=== PATIENT | female | born 1960 | race Caucasian/White ===

== ENCOUNTER 2020-06-02 14:53 | Outpatient (REF) | payer BC, SELFPAY ==
[2020-06-02 15:31] LABS: MANUAL DIFF FLAG NO
[2020-06-02 15:36] LABS: Basophils Percent Auto 0.6 % (0-2); Eosinophils Absolute Auto 0.4 X10*3/uL (0.0-0.4); Eosinophils Percent Auto 5.5 % (0-4); Hematocrit 44.4 % (37-47); Hemoglobin 14.9 g/dl (12.0-16.0); Imm Gran Abs Auto 0.01 X10*3/uL (0.00-0.03); Imm Gran Pct Auto 0.1 % (0.0-0.4); Lymphocytes Absolute Auto 2.3 X10*3/uL (1.2-4.9); Lymphocytes Percent Auto 33.1 % (20-40); Mean Corpuscular HGB Conc 33.6 g/dl (31.0-35.0); Mean Corpuscular Hemoglobin 30.5 pg (27.0-33.0); Mean Corpuscular Volume 90.8 fL (80-98); Mean Platelet Volume 10.9 fL (9.4-12.3); Monocytes Absolute Auto 0.6 X10*3/uL (0.1-1.2); Monocytes Percent Auto 8.6 % (2-11); Neutrophils Absolute Auto 3.6 X10*3/uL (2.0-8.3); Neutrophils Percent Auto 52.1 % (45-73); Platelet Count 271 X10*3/uL (160-400); Red Blood Count 4.89 X10*6/uL (4.20-5.50); Red Cell Distribution Width 13.1 % (11.0-16.0); White Blood Count 6.9 X10*3/uL (4.8-10.8)
[2020-06-02 16:07] LABS: Alanine Aminotransferase 21 U/L (0-31); Albumin Level 4.8 g/dL (3.5-5.0); Alkaline Phosphatase 88 U/L (39-117); Anion Gap 13 (12-20); Aspartate Amino Transferase 25 U/L (5-31); Bilirubin Total 0.5 mg/dL (0.0-1.0); Blood Urea Nitrogen 22 mg/dL (9-16); Calcium 9.6 mg/dL (8.4-10.2); Carbon Dioxide 31 mmol/L (22-29); Chloride 99 mmol/L (96-108); Cholesterol 206 mg/dL; Estimated Glomerular Filt Rate 58; Glucose Random 83 mg/dL (60-115); HDL Cholesterol 67 mg/dL; LDL Cholesterol Calculated 111 mg/dl; Potassium 4.6 mmol/l (3.3-5.1); Sodium 138 mmol/L (135-145); Total Protein 7.3 g/dL (6.5-8.0); Triglycerides 140 mg/dL
[2020-06-02 16:28] LABS: Free T4 (Free Thyroxine) 1.01 ng/dL (0.71-1.85); Thyroid Stimulating Hormone 1.46 uIU/mL (0.32-4.0)
== END 2020-06-02 14:54 | disposition home or self-care (01) ==
LOC: HO.LAB 14:53
PROVIDERS: PCP Internal Medicine; Visit Provider Internal Medicine
DX: E03.9 Hypothyroidism, unspecified (principal); Z00.00 Encounter for general adult medical examination without abnormal findings
CPT/HCPCS: 36415; 80053; 80061; 84439; 84443; 85025

== ENCOUNTER 2020-12-21 14:56 | Outpatient (REF) | payer OTHER, SELFPAY ==
[2020-12-21 15:38] LABS: MANUAL DIFF FLAG NO
[2020-12-21 15:42] LABS: Basophils Percent Auto 0.4 % (0-2); Eosinophils Absolute Auto 0.4 X10*3/uL (0.0-0.4); Eosinophils Percent Auto 5.5 % (0-4); Hematocrit 40.2 % (37-47); Hemoglobin 13.1 g/dl (12.0-16.0); Imm Gran Abs Auto 0.01 X10*3/uL (0.00-0.03); Imm Gran Pct Auto 0.1 % (0.0-0.4); Lymphocytes Percent Auto 28.9 % (20-40); Mean Corpuscular HGB Conc 32.6 g/dl (31.0-35.0); Mean Corpuscular Hemoglobin 29.6 pg (27.0-33.0); Mean Corpuscular Volume 90.7 fL (80-98); Mean Platelet Volume 10.9 fL (9.4-12.3); Monocytes Absolute Auto 0.6 X10*3/uL (0.1-1.2); Monocytes Percent Auto 8.9 % (2-11); Neutrophils Absolute Auto 3.9 X10*3/uL (2.0-8.3); Neutrophils Percent Auto 56.2 % (45-73); Platelet Count 238 X10*3/uL (160-400); Red Blood Count 4.43 X10*6/uL (4.20-5.50); Red Cell Distribution Width 12.2 % (11.0-16.0); White Blood Count 6.9 X10*3/uL (4.8-10.8)
[2020-12-21 16:02] LABS: Alanine Aminotransferase 21 U/L (0-31); Albumin Level 4.4 g/dL (3.5-5.0); Alkaline Phosphatase 76 U/L (39-117); Anion Gap 13 (12-20); Aspartate Amino Transferase 23 U/L (5-31); Bilirubin Total 0.2 mg/dL (0.0-1.0); Blood Urea Nitrogen 18 mg/dL (9-16); C Reactive Protein 0.27 mg/dL (< or = 0.50); Calcium 10.2 mg/dL (8.4-10.2); Carbon Dioxide 29 mmol/L (22-29); Chloride 104 mmol/L (96-108); Estimated Glomerular Filt Rate > 60; Glucose Random 87 mg/dL (60-115); Lipase 36 U/L (8-78); Sodium 142 mmol/L (135-145); Total Protein 6.8 g/dL (6.5-8.0)
[2020-12-21 16:24] LABS: Free T4 (Free Thyroxine) 1.29 ng/dL (0.71-1.85); Thyroid Stimulating Hormone < 0.01 uIU/mL (0.32-4.0); Vitamin D 25-OH Total 58.5 ng/mL (>30)
[2020-12-22 16:06] LABS: Transglutaminase Ab IgG 1 U/mL
[2020-12-23 00:11] LABS: Gliadin Deamidated IgA Ab 4 Units; Gliadin Deamidated IgG Ab 1 Units
== END 2020-12-21 14:57 | disposition home or self-care (01) ==
LOC: HO.LAB 14:56
PROVIDERS: PCP Internal Medicine; Visit Provider Internal Medicine
DX: R19.7 Diarrhea, unspecified (principal); R21 Rash and other nonspecific skin eruption; I10 Essential (primary) hypertension; E55.9 Vitamin D deficiency, unspecified; E05.00 Thyrotoxicosis with diffuse goiter without thyrotoxic crisis or storm
CPT/HCPCS: 36415; 80053; 82306; 83516; 83690; 84439; 84443; 85025; 86140

== ENCOUNTER 2020-12-22 13:27 | Outpatient (REF) | payer OTHER, SELFPAY ==
[2020-12-23 06:17] LABS: Triiodothyronine T3 Free 5.3 pg/mL (2.3-4.2)
[2020-12-23 09:32] LABS: Thyroid Peroxidase Antibodies 305 IU/mL (<9)
== END 2020-12-22 13:28 | disposition home or self-care (01) ==
LOC: HO.LAB 13:27
PROVIDERS: PCP Internal Medicine; Visit Provider Internal Medicine
DX: E03.9 Hypothyroidism, unspecified (principal); E05.00 Thyrotoxicosis with diffuse goiter without thyrotoxic crisis or storm
CPT/HCPCS: 36415; 84481; 86376

== ENCOUNTER 2021-01-10 10:13 | Outpatient (REF) | payer OTHER, SELFPAY ==
--- NOTE | ~2021-01-10 | MM_ITS ---
EXAMINATION: MM SCREENING DIGITAL BREAST TOMOSYNTHESIS, BILATERAL CLINICAL INFORMATION: Screening. Asymptomatic. The lifetime risk of breast cancer based on the Tyrer-Cuzick Model is 19%. COMPARISON: Mammography: 12/10/2019, 08/21/2018, 08/14/2017 TECHNIQUE: Digital breast tomosynthesis is performed in both the craniocaudal and mediolateral oblique views along with computer-aided detection (CAD). Synthesized 2D images are generated from the tomosynthesis. FINDINGS: There are scattered areas of fibroglandular density (ACR BI-RADS breast composition Category b). There are no significant masses, abnormal calcifications, or other abnormalities. The axilla and skin contours are unremarkable. No significant changes. MM/MM tomosynthesis screening BI IMPRESSION: No mammographic evidence of malignancy. ASSESSMENT: BI-RADS 1: Negative RECOMMENDATION: Routine annual mammography screening. This patient's information was entered into a reminder system with a target due date for their next mammogram.
== END 2021-01-10 10:14 | disposition home or self-care (01) ==
LOC: HO.MAMMO 10:13
PROVIDERS: Visit Provider Internal Medicine
DX: Z12.31 Encounter for screening mammogram for malignant neoplasm of breast (principal)
CPT/HCPCS: 77063; 77067

== ENCOUNTER 2022-01-11 10:21 | Outpatient (REF) | payer OTHER, SELFPAY ==
--- NOTE | ~2022-01-11 | MM_ITS ---
EXAMINATION: MM SCREENING DIGITAL BREAST TOMOSYNTHESIS, BILATERAL CLINICAL INFORMATION: Screening. Asymptomatic. The lifetime risk of breast cancer based on the Tyrer-Cuzick Model is 19.4%. COMPARISON: Mammography: January 10, 2021 and studies dating back to June 15, 2014 TECHNIQUE: Digital breast tomosynthesis is performed in both the craniocaudal and mediolateral oblique views along with computer-aided detection (CAD). Synthesized 2D images are generated from the tomosynthesis. FINDINGS: The breasts are heterogeneously dense, which may obscure small masses (ACR BI-RADS breast composition Category c). There are no significant masses, abnormal calcifications, or other abnormalities. MM/MM tomosynthesis screening BI IMPRESSION: There are no significant changes from prior study. ASSESSMENT: BI-RADS 1: Negative RECOMMENDATION: Routine annual mammography screening. This patient's information was entered into a reminder system with a target due date for their next mammogram.
== END 2022-01-11 10:22 | disposition home or self-care (01) ==
LOC: HO.MAMMO 10:21
PROVIDERS: PCP Internal Medicine; Visit Provider Internal Medicine
DX: Z12.31 Encounter for screening mammogram for malignant neoplasm of breast (principal)
CPT/HCPCS: 77063; 77067

== ENCOUNTER 2022-02-28 11:07 | Outpatient (REF) | payer OTHER, SELFPAY ==
[2022-02-28 13:37] LABS: MANUAL DIFF FLAG NO
[2022-02-28 13:39] LABS: Basophils Absolute Auto 0.1 X10*3/uL (0.0-0.2); Basophils Percent Auto 1.2 % (0-2); Eosinophils Absolute Auto 0.3 X10*3/uL (0.0-0.4); Eosinophils Percent Auto 4.2 % (0-4); Hematocrit 41.4 % (37.0-47.0); Hemoglobin 13.5 g/dl (12.0-16.0); Imm Gran Abs Auto 0.02 X10*3/uL (0.00-0.03); Imm Gran Pct Auto 0.3 % (0.0-0.4); Lymphocytes Percent Auto 29.5 % (20-40); Mean Corpuscular HGB Conc 32.6 g/dl (31.0-35.0); Mean Corpuscular Hemoglobin 31.1 pg (27.0-33.0); Mean Corpuscular Volume 95.4 fL (80.0-98.0); Mean Platelet Volume 11.1 fL (9.4-12.3); Monocytes Absolute Auto 0.5 X10*3/uL (0.1-1.2); Monocytes Percent Auto 6.6 % (2-11); Neutrophils Percent Auto 58.2 % (45-73); Platelet Count 236 X10*3/uL (160-400); Red Blood Count 4.34 X10*6/uL (4.20-5.50); White Blood Count 6.9 X10*3/uL (4.8-10.8)
[2022-02-28 13:50] LABS: Alanine Aminotransferase 17 U/L (0-31); Albumin Level 4.2 g/dL (3.5-5.0); Alkaline Phosphatase 96 U/L (39-117); Anion Gap 15 (12-20); Aspartate Amino Transferase 19 U/L (5-31); Bilirubin Total 0.6 mg/dL (0.0-1.0); Blood Urea Nitrogen 18 mg/dL (9-16); Calcium 9.3 mg/dL (8.4-10.2); Carbon Dioxide 28 mmol/L (22-29); Chloride 103 mmol/L (96-108); Estimated Glomerular Filt Rate > 60; Glucose Fasting 72 mg/dL (60-99); Sodium 142 mmol/L (135-145); Total Protein 6.7 g/dL (6.5-8.0)
[2022-02-28 14:14] LABS: Free T4 (Free Thyroxine) 0.87 ng/dL (0.71-1.85); Thyroid Stimulating Hormone 1.73 uIU/mL (0.32-4.0); Vitamin D 25-OH Total 68.1 ng/mL (>30)
[2022-03-01 21:25] LABS: Thyroid Peroxidase Antibodies 106 IU/mL (<9)
== END 2022-02-28 11:08 | disposition home or self-care (01) ==
LOC: HO.10HDL 11:07
PROVIDERS: Visit Provider Internal Medicine
DX: I10 Essential (primary) hypertension (principal); E55.9 Vitamin D deficiency, unspecified; E03.9 Hypothyroidism, unspecified
CPT/HCPCS: 36415; 80053; 82306; 84439; 84443; 85025; 86376

== ENCOUNTER 2022-04-25 10:34 | Outpatient (REF) | payer OTHER, SELFPAY ==
--- NOTE | ~2022-04-25 | US_ITS ---
EXAMINATION: US THYROID CLINICAL INFORMATION: Enlarged thyroid. COMPARISON: Nuclear medicine thyroid scans most recent January 2017 TECHNIQUE: Linear transducer grayscale and color Doppler examination with attention to the region of the thyroid. FINDINGS: SIZE: Measurements of the thyroid lobes and nodules are given in sagittal, anteroposterior and transverse dimensions respectively. Right Thyroid Lobe: 4.4 x 1.1 x 1.5 cm, volume 3.9 mL. Parenchyma: The gland echotexture is slightly heterogeneous. Thyroid vascularity is slightly increased. Left Thyroid Lobe: 4.1 x 1.1 x 1.3 cm, volume 3.0 mL. Parenchyma: The gland echotexture is slightly heterogeneous. Thyroid vascularity is slightly increased. Isthmus: 0.4 cm in maximum AP dimension. No focal thyroid nodule is seen. NODES: No lymphadenopathy is seen in the tissue surrounding the thyroid gland. US/US thyroid IMPRESSION: Normal size slightly heterogeneous hypervascular thyroid gland. No focal nodule.
== END 2022-04-25 10:35 | disposition home or self-care (01) ==
LOC: HO.US 10:34
PROVIDERS: PCP Internal Medicine; Visit Provider Internal Medicine
DX: E04.9 Nontoxic goiter, unspecified (principal)
CPT/HCPCS: 76536

== ENCOUNTER 2022-11-30 10:33 | Outpatient (REF) | payer OTHER, SELFPAY ==
[2022-11-30 11:26] LABS: Anion Gap 12 (12-20); Blood Urea Nitrogen 21 mg/dL (9-16); Calcium 10.3 mg/dL (8.4-10.2); Carbon Dioxide 30 mmol/L (22-29); Chloride 104 mmol/L (96-108); Estimated Glomerular Filt Rate 57; Glucose Random 95 mg/dL (60-115); Potassium 3.9 mmol/L (3.3-5.1); Sodium 142 mmol/L (135-145)
[2022-11-30 11:45] LABS: Free T4 (Free Thyroxine) 0.82 ng/dL (0.71-1.85); Thyroid Stimulating Hormone 7.21 uIU/mL (0.32-4.0)
[2022-12-02 12:29] LABS: Thyroid Peroxidase Antibodies 236 IU/mL (<9)
== END 2022-11-30 10:34 | disposition home or self-care (01) ==
LOC: HO.LAB 10:33
PROVIDERS: PCP Internal Medicine; Visit Provider Internal Medicine
DX: I10 Essential (primary) hypertension (principal); E03.9 Hypothyroidism, unspecified; E05.00 Thyrotoxicosis with diffuse goiter without thyrotoxic crisis or storm
CPT/HCPCS: 36415; 80048; 84439; 84443; 86376

== ENCOUNTER 2023-01-22 12:06 | Outpatient (REF) | payer OTHER, SELFPAY ==
--- NOTE | ~2023-01-22 | MM_ITS ---
EXAMINATION: MM SCREENING DIGITAL BREAST TOMOSYNTHESIS, BILATERAL CLINICAL INFORMATION: Screening. Asymptomatic. The lifetime risk of breast cancer based on the Tyrer-Cuzick Model is 19%. COMPARISON: Mammography: This study is compared with prior exams dating back to 2018. TECHNIQUE: Digital breast tomosynthesis is performed in both the craniocaudal and mediolateral oblique views along with computer-aided detection (CAD). Synthesized 2D images are generated from the tomosynthesis. FINDINGS: There are scattered areas of fibroglandular density (ACR BI-RADS breast composition Category b). There are no significant masses, abnormal calcifications, or other abnormalities. MM/MM tomosynthesis screening BI IMPRESSION: No mammographic evidence of malignancy. ASSESSMENT: BI-RADS BI-RADS 1 - Negative RECOMMENDATION: Routine annual mammography screening. 1 year F/U This examination should not preclude the clinical evaluation of a suspicious palpable abnormality. This patient's information was entered into a reminder system with a target due date for their next mammogram.
[2023-01-22 15:20] LABS: Free T4 (Free Thyroxine) 0.77 ng/dL (0.71-1.85); Thyroid Stimulating Hormone 1.77 uIU/mL (0.32-4.0)
== END 2023-01-22 12:07 | disposition home or self-care (01) ==
LOC: HO.MAMMO 12:06
PROVIDERS: PCP Internal Medicine; Visit Provider Internal Medicine
DX: Z12.31 Encounter for screening mammogram for malignant neoplasm of breast (principal); E03.9 Hypothyroidism, unspecified; E06.9 Thyroiditis, unspecified
CPT/HCPCS: 36415; 77063; 77067; 84439; 84443

== ENCOUNTER → 2023-01-22 12:30 | Outpatient (BNV) | payer OTHER, SELFPAY | PROVIDERS: PCP Internal Medicine; Visit Provider Radiology Diagnostic Radiology | DX: Z12.31 Encounter for screening mammogram for malignant neoplasm of breast (principal) | CPT/HCPCS: 77063; 77067 ==

== ENCOUNTER 2023-06-15 07:27 | Day surgery (SDC) | payer OTHER, SELFPAY ==
[2023-06-13 15:13] VITALS: BMI 21.1
[2023-06-13 15:26] VITALS: BMI 21.1
--- NOTE | 2023-06-14 09:47 | HO.ANESPROP2 ---
Documented by User: Madeline Cheng NP 06/14/23 09:48 HPI - Anesthesia Eval Consult details Narrative: 62yo F for Colonoscopy PMFSH Past Medical History Medical History Thyroid disease Elevated cholesterol HTN (hypertension) Surgical History Surgical History Hx of dilation and curettage Hx of hysterectomy Hx of tonsillectomy H/O colonoscopy Social History Social History Household Members: Spouse Are you a primary certified social workers in health care to a significant other at home: No Patient Tobacco Use Status: Former Tobacco user Quit Date: >10years ago Tobacco use type: Cigarette Use of substances other than those prescribed or required for medical reasons: No Have you been hit, kicked, punched, or otherwise hurt by someone within the past year? If so, by whom?: No Are you DNR?: No Advance Directives: No Advance Directives Information Provided: Yes Advance Directives on File: No Recently lost weight without trying: No Eating poorly because of decreased appetite: No Nutrition Risks: No Nutritional Risk Poor oral hygiene: No Meds Allergies Allergy/AdvReac Type Severity Reaction Status Date / Time penicillin G [Penicillin G] Allergy Intermediate Unknown-childhood Verified 06/15/23 07:48 allergy erythromycin base Allergy Mild HIVES Verified 06/15/23 07:48 [Erythromycin Base] Sulfa (Sulfonamide Allergy Mild HIVES Verified 06/15/23 07:48 Antibiotics) [Sulfa (Sulfonamides)] Home Medications Medication Instructions Recorded Confirmed Last Taken Type atenolol 50 mg tablet 50 mg PO DAILY 06/13/23 06/15/23 06/14/23 History atorvastatin 10 mg tablet 10 mg PO DAILY 06/13/23 06/15/23 06/14/23 History hydrochlorothiazide 12.5 mg tablet 12.5 mg PO DAILY 06/13/23 06/13/23 Unknown History lisinopril 5 mg tablet 5 mg PO DAILY 06/13/23 06/15/23 06/14/23 History methimazole 5 mg tablet 5 mg PO DAILY 06/13/23 06/15/23 06/14/23 History Exam Height,Weight and Vital Signs: Height 5 ft 5.25 in Weight 58.06 kg Pertinent Lab Results Pertinent Lab Results: Laboratory Tests 02/28/22 02/28/22 11/30/22 11:11 11:11 10:40 WBC 6.9 Hgb 13.5 Hct 41.4 Plt Count 236 Sodium Potassium 3.9 Chloride Carbon Dioxide BUN Creatinine 11/30/22 10:40 WBC Hgb Hct Plt Count Sodium 142 Potassium Chloride 104 Carbon Dioxide 30 H BUN 21 H Creatinine 0.99 Assessment and Plan Assessment Anesthesia Assessment: Chart Reviewed Documented by User: Angely Triplett MD 06/15/23 08:34 PMFSH Past Medical History Medical History Thyroid disease Elevated cholesterol HTN (hypertension) Family History Family history of problems with anesthesia: No Surgical History Surgical History Hx of dilation and curettage Hx of hysterectomy Hx of tonsillectomy H/O colonoscopy History of Problems with Anesthesia: No Social History Social History Household Members: Spouse Are you a primary certified social workers in health care to a significant other at home: No Patient Tobacco Use Status: Former Tobacco user Quit Date: >10years ago Tobacco use type: Cigarette Use of substances other than those prescribed or required for medical reasons: No Have you been hit, kicked, punched, or otherwise hurt by someone within the past year? If so, by whom?: No Are you DNR?: No Advance Directives: No Advance Directives Information Provided: Yes Advance Directives on File: No Recently lost weight without trying: No Eating poorly because of decreased appetite: No Nutrition Risks: No Nutritional Risk Poor oral hygiene: No Meds Allergies Allergy/AdvReac Type Severity Reaction Status Date / Time penicillin G [Penicillin G] Allergy Intermediate Unknown-childhood Verified 06/15/23 07:48 allergy erythromycin base Allergy Mild HIVES Verified 06/15/23 07:48 [Erythromycin Base] Sulfa (Sulfonamide Allergy Mild HIVES Verified 06/15/23 07:48 Antibiotics) [Sulfa (Sulfonamides)] Home Medications Medication Instructions Recorded Confirmed Last Taken Type atenolol 50 mg tablet 50 mg PO DAILY 06/13/23 06/15/23 06/14/23 History atorvastatin 10 mg tablet 10 mg PO DAILY 06/13/23 06/15/23 06/14/23 History hydrochlorothiazide 12.5 mg tablet 12.5 mg PO DAILY 06/13/23 06/13/23 Unknown History lisinopril 5 mg tablet 5 mg PO DAILY 06/13/23 06/15/23 06/14/23 History methimazole 5 mg tablet 5 mg PO DAILY 06/13/23 06/15/23 06/14/23 History Exam Height,Weight and Vital Signs: Height 5 ft 5.25 in Weight 58.06 kg Vital Signs Temp Pulse Resp BP Pulse Ox O2 Del Method 06/15/23 07:59 97.0 F 58 16 130/67 100 Room Air Airway Mallampati Class: II TM Dist: >3cm Neck ROM: Full Loose/Missing/Broken Teeth: No (Denies broken, loose, missing teeth) Heart: RRR Lungs: CTAB Assessment and Plan Assessment Anesthesia Assessment: Anesthesia Plan Discussed Final Anesthetic Review Family History of Problems with Anesthesia: No History of Problems with Anesthesia: No NPO: Yes ASA Class: II Final Preanesthetic Review: No Changes in Pt Med Stat, Meds/Allgs Chart Reviewed, Consent Obtained/Reviewed and Anes Risks/Benef Reviewed Patient Risk: Low Procedure Risk: Low Assessment/Block/Sedation in SS: Assess/Block/Sedation-SS Anesthetic Plan Anesthetic Plan: MAC: Disposition: Standard PACU
[2023-06-15 07:59] VITALS: BP 130/67; PULSE 58; RESP 16; TEMP 36.1; O2SAT 100
[2023-06-15] MEDS: Lactated Ringers 1,000 ML 100 ML IVCONT (08:01)
--- NOTE | 2023-06-15 09:07 | P.BOP_ITS ---
Brief Operative Note Date of Service: 06/15/23 Pre-op diagnosis: Screening Post-op diagnosis: other (Rectal polyps) Procedure: Colonoscopy to the cecum with bx/removal of polyps Surgeon: Corey Pastrana MD Anesthesia: MAC Was an Supervisor [employer] used for this Procedure?: No Estimated blood loss (mL): 2.0 Pathology: other (A. Rectal polyps) Condition: stable Disposition: PACU
[2023-06-15 09:15] VITALS: BP 114/60; PULSE 64; RESP 16; TEMP 36.3; O2SAT 100
[2023-06-15 09:31] VITALS: BP 118/64; PULSE 52; RESP 18; TEMP 36.2; O2SAT 99
--- NOTE | 2023-06-15 09:42 | OP_ITS ---
DATE OF SERVICE: 06/15/2023 SURGEON: Corey Pastrana MD INDICATIONS: The patient presents for evaluation of colorectal cancer screening. Full consent was obtained from her for this, including risks of bleeding and perforation. PREOPERATIVE DIAGNOSIS: Colorectal cancer screening. POSTOPERATIVE DIAGNOSIS: PROCEDURE PERFORMED: Colonoscopy to the cecum with biopsy and removal of polyps. ESTIMATED BLOOD LOSS: COMPLICATIONS: ANESTHESIA: Monitored anesthesia care. ASSISTANTS: SPECIMENS: POSTOPERATIVE DIAGNOSES: Colorectal cancer screening, small rectal polyps, diverticulosis, and internal hemorrhoids. DESCRIPTION OF PROCEDURE: The patient was placed in the left lateral decubitus position. The digital rectal exam revealed no abnormalities. The Olympus video pediatric colonoscope was entered into the rectum and advanced easily to the cecum. Once in the cecum I did identify a normal-appearing cecal pouch with appendiceal orifice and a normal-appearing ileocecal valve. There was transillumination of light deep in the right lower quadrant. The entire cecum and ileocecal valve appeared normal. The scope was slowly withdrawn assessing all mucosal surfaces carefully. Preparation was excellent. There was a mild amount of sigmoid diverticulosis. There was no sign of any colitis nor angiodysplasia. In the rectum there were 2 flat less than 5 mm polyps which were each biopsied and completely removed with the cold biopsy forceps. The scope was retroflexed visualizing internal hemorrhoids, but no other pathology. The scope was straightened and withdrawn from the patient. She tolerated the procedure well and was returned to recovery area in stable condition. IMPRESSION: 1. Small rectal polyps. 2. Diverticulosis. 3. Internal hemorrhoids. PLAN: The results of biopsy will be checked. If these are tubular adenoma, I would recommend a followup coloscopy in 5 years. If they are both hyperplastic, I would recommend a followup coloscopy in 10 years. She will otherwise see me on a p.r.n. basis. This has been discussed with her . MD FRANCES Zazueta/MARGARET / [id number] [id number]
== END 2023-06-15 09:40 | disposition home or self-care (01) ==
PROVIDERS: PCP Internal Medicine; Visit Provider Internal Medicine
PROC: 0DJD8ZZ Inspection of Lower Intestinal Tract, Via Natural or Artificial Opening Endoscopic (ICD-10-PCS; CPT 45378; principal; 2023-06-15 08:30)
DX: Z12.11 Encounter for screening for malignant neoplasm of colon (principal); K62.1 Rectal polyp; K57.30 Diverticulosis of large intestine without perforation or abscess without bleeding; K64.8 Other hemorrhoids; I10 Essential (primary) hypertension; E78.5 Hyperlipidemia, unspecified; E05.00 Thyrotoxicosis with diffuse goiter without thyrotoxic crisis or storm; Z79.899 Other long term (current) drug therapy; Z88.0 Allergy status to penicillin; Z88.1 Allergy status to other antibiotic agents; Z88.2 Allergy status to sulfonamides; Z87.891 Personal history of nicotine dependence
CPT/HCPCS: 45380; 88305; J2704

== ENCOUNTER 2023-12-21 10:36 | Outpatient (REF) | payer OTHER, SELFPAY ==
[2023-12-21 14:16] LABS: MANUAL DIFF FLAG NO
[2023-12-21 14:24] LABS: Basophils Percent Auto 0.6 % (0-2); Eosinophils Absolute Auto 0.2 X10*3/uL (0.0-0.4); Eosinophils Percent Auto 3.8 % (0-4); Hematocrit 42.2 % (37.0-47.0); Imm Gran Abs Auto 0.02 X10*3/uL (0.00-0.03); Imm Gran Pct Auto 0.3 % (0.0-0.4); Lymphocytes Percent Auto 31.4 % (20-40); Mean Corpuscular HGB Conc 33.2 g/dl (31.0-35.0); Mean Corpuscular Volume 93.6 fL (80.0-98.0); Mean Platelet Volume 10.9 fL (9.4-12.3); Monocytes Absolute Auto 0.5 X10*3/uL (0.1-1.2); Monocytes Percent Auto 7.2 % (2-11); Neutrophils Absolute Auto 3.5 x10*3/uL (2.0-8.3); Neutrophils Percent Auto 56.7 % (45-73); Platelet Count 254 X10*3/uL (160-400); Red Blood Count 4.51 X10*6/uL (4.20-5.50); Red Cell Distribution Width 12.8 % (11.0-16.0); White Blood Count 6.3 X10*3/uL (4.8-10.8)
[2023-12-21 15:15] LABS: Alanine Aminotransferase 17 U/L (0-31); Albumin Level 4.5 g/dL (3.5-5.0); Alkaline Phosphatase 82 U/L (39-117); Anion Gap 12 (12-20); Aspartate Amino Transferase 22 U/L (5-31); Bilirubin Total 0.3 mg/dL (0.0-1.0); Blood Urea Nitrogen 21 mg/dL (9-16); Calcium 10.1 mg/dL (8.4-10.2); Carbon Dioxide 31 mmol/L (22-29); Chloride 105 mmol/L (96-108); Cholesterol 178 mg/dL (<200); Estimated Glomerular Filt Rate > 60; Free T4 (Free Thyroxine) 0.88 ng/dL (0.71-1.85); Glucose Fasting 73 mg/dL (60-99); HDL Cholesterol 67 mg/dL (>40); LDL Cholesterol Calculated 95 mg/dL (<100); Sodium 144 mmol/L (135-145); Thyroid Stimulating Hormone 1.93 uIU/mL (0.32-4.0); Total Protein 7.1 g/dL (6.5-8.0); Triglycerides 81 mg/dL (<150)
== END 2023-12-21 10:37 | disposition home or self-care (01) ==
LOC: HO.WFDLDS 10:36
PROVIDERS: Visit Provider Internal Medicine
DX: E03.9 Hypothyroidism, unspecified (principal); I10 Essential (primary) hypertension; E78.00 Pure hypercholesterolemia, unspecified
CPT/HCPCS: 36415; 80053; 80061; 84439; 84443; 85025

== ENCOUNTER 2024-01-30 08:56 | Outpatient (REF) | payer OTHER, SELFPAY | END 2024-01-30 08:57 | disposition home or self-care (01) | LOC: HO.MAMMO 08:56 | PROVIDERS: PCP Internal Medicine; Visit Provider Internal Medicine | DX: Z12.31 Encounter for screening mammogram for malignant neoplasm of breast (principal) | CPT/HCPCS: 77063; 77067 ==

== ENCOUNTER → 2024-01-30 09:00 | Outpatient (BNV) | payer OTHER, SELFPAY | PROVIDERS: PCP Internal Medicine; Visit Provider Radiology Diagnostic Radiology | DX: Z12.31 Encounter for screening mammogram for malignant neoplasm of breast (principal) | CPT/HCPCS: 77063; 77067 ==

== ENCOUNTER 2024-07-01 13:06 | Outpatient (AMB) | payer OTHER, SELFPAY ==
--- NOTE | 2024-07-01 13:08 | A.OFFPC_ITS ---
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 care Intake Note: new patient to establish care Maintenance Scheduler Required: No Allergies penicillin G [Penicillin G] Allergy (Intermediate, Verified 07/01/24 13:09) Unknown-childhood allergy erythromycin base [Erythromycin Base] Allergy (Mild, Verified 07/01/24 13:09) HIVES Sulfa (Sulfonamide Antibiotics) [Sulfa (Sulfonamides)] Allergy (Mild, Verified 07/01/24 13:09) HIVES Tobacco use date assessed: 07/01/24 Dental Screening Dental Screen Date: 07/01/24 Did you have a dental visit in the last 12 months?: Yes Did you have a dental problem in the last 6 months where you did not have access to dental care?: No Was dental information given to patient?: Patient has dentist HPI HPI Comments History of Present Illness Details 63 year old female with a past medical h istory of hypertension, hyperlipidemia, Graves presenting to [facility]. Transferring from Dr Mcclure CV: On lisinopril, hctz. Wondering if she can come off the latter. She feels dehydrated all the time Hyperthyroid: On methimazole MWF. Last TSH was normal range. Managed by previous pcp colonoscopy 05/2023 mammo 01/2024 s/p hysterectomy. Not following with field installer ROS CONSTITUTIONAL: Denies weight loss, fever and chills. HEENT: Sinus congestion, rhinitis, ear fullness RESPIRATORY: +cough for the past 3 week CV: Denies palpitations and CP GI: Denies abdominal pain, nausea, vomiting and diarrhea. : Denies dysuria and urinary frequency. MSK: Denies new myalgia and joint pain. SKIN: Denies rash and pruritus. NEUROLOGICAL: Denies headache PSYCHIATRIC: Denies recent changes in mood. PHYSICAL EXAM: GENERAL: Alert and oriented x 3. NAD EYES: EOMI. Anicteric. HENT: Moist mucous membranes. boggy nasal mucosa LUNGS: Clear to auscultation bilaterally. CARDIOVASCULAR: Regular rate and rhythm. No murmur. No JVD. ABDOMEN: Soft, non-tender +bs EXTREMITIES: No edema. Non-tender. SKIN: No rashes or lesions. Warm. NEUROLOGIC: No focal neurological deficits. CN II-XII grossly intact PSYCHIATRIC: Cooperative. Appropriate mood and affect [facility] Medical History Thyroid disease Elevated cholesterol HTN (hypertension) Surgical History Hx of dilation and curettage Hx of hysterectomy Hx of tonsillectomy H/O colonoscopy Family History Mother Breast cancer Hypertension High cholesterol Father Hypertension High cholesterol Diabetes Cardiovascular disease Son Diabetes Social History Household Members: Spouse Housing: House Are you a primary healthcare manager to a significant other at home: No Do you presently have visiting nurse or other home services: No 75 years or older and lives alone: No Alcohol intake: current Alcohol intake frequency: a few times a week Patient Tobacco Use Status: Former Tobacco user Tobacco use type: Cigarette e-Cigarette/Vaping Use: Never Used Second Hand Smoke Exposure: No Current occupational status: employed 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 1. Little interest or pleasure in doing things: not at all 2. Feeling down, depressed, or hopeless: not at all 3. Trouble falling or staying asleep, or sleeping too much: several days 4. Feeling tired or having little energy: not at all 5. Poor appetite or overeating: not at all 6. Feeling bad about yourself - or that you are a failure or have let yourself or your family down: not at all 7. Trouble concentrating on things, such as reading the newspaper or watching television: not at all 8. Moving or speaking so slowly that other people could have noticed. Or the opposite - being so fidgety or restless that you have been moving around a lot more than usual: not at all 9. Thoughts that you would be better off or of hurting yourself in some way: not at all Total score: 1 Depression Screening Interpretation: Negative Depression Screening Done: Yes 95644 - PHQ-9 Billing: Yes Source: Developed by Drs. Corey Cadena, Violeta Harrington, Alec Bourne and colleagues, with an educational theodore from [employer]. Thrive Questionnaire Date Thrive assessed: 07/01/24 I am a: Patient What is your living situation today?: I have a steady place to live Within the past 12 months, did the food you bought not last and you didn't have the money to get more?: Never true Within the past 12 months, did you worry whether your food would run out before you got money to buy more?: Never true Do you have trouble paying for medicines?: No Do you have trouble getting transportation to medical appointments?: No Do you have trouble paying your heating and electricity bill?: No Do you have trouble taking care of your child, family member or friend?: No Do you have trouble with day-to-day activities such as bathing, preparing meals, shopping, managing finances, etc.?: No Are you currently unemployed and looking for a job?: No Are you interested in more education?: No Please select the resources that you would like help with: None Currently or been in a relationship where the following occur: No concerns reported THRIVE Score: 0 AUDIT C Alcohol Use Questionnaire (AUDIT-C) 1. How often do you have a drink containing alcohol?: 4 or more times a week 3. How often do you have six or more drinks on one occasion?: Never Total Score: 4 SIGRID-7 AMB Questionnaire SIGRID-7 Date SIGRID - 7 assessed: 07/01/24 Feeling nervous, anxious, or on edge: 0 = Not at all Not being able to stop or control worryin = Not at all Worrying too much about different things: 0 = Not at all Trouble relaxin = Not at all Being so restless that it is hard to sit still: 0 = Not at all Becoming easily annoyed or irritable: 0 = Not at all Feeling afraid as if something awful might happen: 0 = Not at all Total SIGRID-7 score (0-4 normal; 5-9 mild; 10-14 moderate; 15-21 severe): 0 Source: Developed by Violeta Tolliver Kurt Kroenke and colleagues, with an educational theodore from [employer]. SIGRID-7 Assessment Billing SIGRID-7 Assessment Tool: SIGRID-7 Assessment 86090 Physical exam (Primary Care) Vital Signs: Last Vital Signs Pulse 51 07/01/24 13:18 Resp 12 07/01/24 13:18 BP 124/72 07/01/24 13:18 Pulse Ox 95 07/01/24 13:18 Oxygen Delivery Method Room Air 07/01/24 13:18 BMI result Body Mass Index 22.8 Tobacco/Smoking Status: Tobacco use Status Tobacco use date assessed 07/01/24 07/01/24 13:20 Patient Tobacco Use Status Former Tobacco user 07/01/24 13:20 Tobacco use type Cigarette 07/01/24 13:20 e-Cigarette/Vaping Use Never Used 07/01/24 13:20 PHQ-9: PHQ-9 Score PHQ-9: Total score 1 07/01/24 13:20 Depression Screening Interpretation: Negative Thrive Assessment: Date of Thrive Assessment Date Thrive assessed 07/01/24 07/01/24 13:20 Currently or been in a relationship where the following occur: No concerns reported Coding Level of Care Code New Pt Level 4 (74525) Complex EM visit Add On G2211 Diagnoses Establishing care with new doctor, encounter for Z76.89 Primary hypertension I10 Hypertension type: primary hypertension Elevated cholesterol E78.00 Thyroid disease E07.9 Additional Codes SIGRID-7 Assessment Billing - SIGRID-7 Assessment Tool: SIGRID-7 Assessment 86816 ([id number]) PHQ-9 - 44644 - PHQ-9 Billing: Yes ([id number]) Assessment & Plan Assessment & Plan (1) Establishing care with new doctor, encounter for: Code(s): Z76.89 - Persons encountering health services in other specified circumstances Category: Medical Plan: 63 year old to establish care. Past medical, surgical, social and family history reviewed. Chart updated (2) HTN (hypertension): Code(s): I10 - Essential (primary) hypertension Category: Medical Qualifiers: Hypertension type: primary hypertension Qualified Code(s): I10 - Essential (primary) hypertension Plan: well controlled She can stop hctz and come back in one week for nurse bp check. May need to i ncrease lisinopril. continue atenolol. (3) Elevated cholesterol: Code(s): E78.00 - Pure hypercholesterolemia, unspecified Category: Medical Plan: continue statin therapy (4) Thyroid disease: Comment: Graves-taking methimazole Code(s): E07.9 - Disorder of thyroid, unspecified Category: Medical Plan: Last TSH normal. Monitor Orders: Orders TSH reflex Free T4 Today E07.9 - Disorder of thyroid, unspecified, E78.00 - Pure hypercholesterolemia, unspecified, I10 - Essential (primary) hypertension Cortisol Random Today R53.83 - Other fatigue Comprehensive Met. Panel Today E07.9 - Disorder of thyroid, unspecified, E78.00 - Pure hypercholesterolemia, unspecified, I10 - Essential (primary) hypertension Complete Blood Count Auto Diff Today E07.9 - Disorder of thyroid, unspecified, E78.00 - Pure hypercholesterolemia, unspecified, I10 - Essential (primary) hypertension Lipid Panel Today E07.9 - Disorder of thyroid, unspecified, E78.00 - Pure hypercholesterolemia, unspecified, I10 - Essential (primary) hypertension Medications: New codeine-guaifenesin 10-100 mg/5 mL patient may pay out of pocket partial fill upon patient request 10 mL PO BEDTIME PRN 120 mL 0RF cough doxycycline hyclate 100 mg PO BID 7 days 14 tabs 0RF
[2024-07-01 13:18] VITALS: BP 124/72; PULSE 51; RESP 12; O2SAT 95; BMI 22.8
--- OUTSIDE RECORDS SUMMARY | 2024-07-01 15:21 | XMS_ITS ---
Author Organization [facility] Address [address] [place] [address] Care Team Providers Care Book Editor Name Role Phone Rodrigo Mcclure MD Primary Care Provider Unavaila Corey Lizarraga Unavailable [phone] REASON FOR VISIT screening PROBLEMS Problem Type ICD Code Onset Dates Problem Status W/U Status Risk SNOMED Code Notes Problem Diverticulosis of large intestine without perforation or abscess without bleeding (K57.30) Active confirmed Diverticul ar disease of colon ([id number]) Encounters Encounter Location Date Provider Diagnosis [facility] Outpatient [address], [place] [id number] 06/15/2023 Corey Pastrana Encounter for scre ening colonoscopy Z12.11 ; Rectal polyp K62.1 ; Diverticulosis of large intestine without perforation or abscess without bleeding K57.30 and Internal hemorrhoids K64.8 ASSESSMENTS Encounter Date Diagnosis Assessment Notes Treatment Notes Treatment Clinical Notes 06/15/2023 Encounter for screening colonoscopy (ICD-10 - Z12.11) 06/15/2023 Rectal polyp (ICD-10 - K62.1) 06/15/2023 Diverticulosis of large intestine without perforation or abscess without bleeding (ICD-10 - K57.30) 06/15/2023 Internal hemorrhoids (ICD-10 - K64.8) PLAN OF TREATMENT No Information
--- OUTSIDE RECORDS SUMMARY | 2024-07-01 15:22 | XMS_ITS ---
Author Organization [facility] Address [address] [place] [address] Care Team Providers Care Financial Risk Manager Name Role Phone Rodrigo Mcclure MD Primary Care Provider Leslie Euceda Unavailable [phone] ALLERGIES Allergen (clinical drug ingredient) Drug/Non Drug Allergy documented on EMR Reaction Allergy Type Onset Date Status Sulfa Unknown Drug Allergy Active Penicillin Unknown Drug Allergy Active erythromycin Erythromycin Unknown Drug Allergy A ctive REASON FOR VISIT Patient presents today for a COLON SCREENING MEDICATIONS Medication SIG (Take, Route, Frequency, Duration) Notes Start Date End Date Status methIMAzole 5 MG Oral for 90 A ctive hydroCHLOROthiazide 12.5 MG 1 capsule in the morning Orally Once a day Active Lisinopril 5 MG Oral for 90 Ac tive Atorvastatin Calcium 10 MG Oral for 90 Active Atenolol 50 MG 1 tablet Orally Once a day Active Vitamin D Active Vitamin B12 Active SOCIAL HISTORY Tobacco Use: Social History Observation Description Date Details (start date - stop date) Former Smoker NA - NA Sex Assigned At : Social History Observation Description Sex Assigned At Unknown Tobacco Use/Smoking Question Answer Notes Patient is a former smoker How long has it been since you last smoked? > 10 years Alcohol Screen Question Answer Notes Did you have a drink contain ing alcohol in the past year? Yes Points 3 Interpretation Positive How often did you have 6 or more drinks on one occasion in the past year? Never (0 point) How many drinks did you have on a typical day when you were drinking in the past year? 1 or 2 drinks (0 point) How often did you have a dri nk containing alcohol in the past year? 2 to 3 times a week (3 points) PROBLEMS Problem Type ICD Code Onset Dates Problem Status W/U Status Risk SNOMED Code Notes Problem Colon cancer screening (Z12.11) Active confirmed 672669685 Problem Preprocedural examination (Z01.818) Active confirmed [id number] VITAL SIGNS BMI 21.14 kg/m2 03/08/2023 Blood pressure systolic 000 mm Hg 03/08/20 23 Blood pressure diastolic 00 mm Hg 023 Height 65.25 in 03/08/2023 Temperature 96.6 degrees Fahrenheit 03/08/20 23 Weight 128 lbs 03/08/2023 Encounters Encounter Location Date Provider Diagnosis [facility] [address] [place] [address] 03/08/2023 Leslie Pastrana Colon cancer screeni ng Z12.11 and Preprocedural examination Z01.818 ASSESSMENTS Encounter Date Diagnosis Assessment Notes Treatment Notes Treatment Clinical Notes 03/08/2023 Colon cancer screening (ICD-10 - Z12.11) Do not use the Hydrochlorothiazide the day before nor on the day of the procedure 03/08/2023 Preprocedural examination (ICD-10 - Z01.818) PLAN OF TREATMENT Treatment Notes Assessment Notes Colon cancer screening Do not use the Hy drochlorothiazide the day before nor on the day of the procedure Future Test Test Name Order Date COLONOSCOPY 03/08/2023 Next Appt Details Follow Up: prn, Reason: Progress Notes * Examination Category Sub-Category Detail Notes General Examination GENERAL APPEARANCE: pleasant , well nourished, well developed, in no acute distress HEAD: EYES: sclera non-icteric EARS: NOSE: THROAT: NECK/THYROID: no cervical lymphade nopathy, neck supple HEART: S1, S2 normal CHEST: LUNGS: clear to auscultatio n bilaterally ABDOMEN: normal bowel sounds, no guarding or rigidity, no guarding or rigidity, no masses palpable, soft, nontender, nondistended NEUROLOGIC: alert and oriented SKIN: nonjaundiced, no spi gabi angiomata EXTREMITIES: no edema PERIPHERAL PULSES: BACK: BREASTS: MUSCULOSKELETAL: MALE GENITOURINARY: LYMPH NODES: RECTAL EXAM: FEMALE GENITOURINARY: ORAL CAVITY: mucosa moist
--- OUTSIDE RECORDS SUMMARY | 2024-07-01 15:22 | XMS_ITS | Patient Health Record ---
Author Organization [facility] Address [address] [place] [address] Care Team Providers Care Machine Stuffer Name Role Phone Rodrigo Mcclure MD Primary Care Provider Leslie Euceda Unavailable [phone] ALLERGIES Allergen (clinical drug ingredient) Drug/Non Drug Allergy documented on EMR Reaction Allergy Type Onset Date Status Sulfa Unknown Drug Allergy Active Penicillin Unknown Drug Allergy Active erythromycin Erythromycin Unknown Drug Allergy A ctive REASON FOR REFERRAL No Information MEDICATIONS Medication SIG (Take, Route, Frequency, Duration) Notes Start Date End Date Status methIMAzole 5 MG Oral for 90 A ctive hydroCHLOROthiazide 12.5 MG 1 capsule in the morning Orally Once a day Active Atenolol 50 MG 1 tablet Orally Once a day Active Lisinopril 5 MG Oral for 90 Ac tive Atorvastatin Calcium 10 MG Oral for 90 Active Vitamin D Active Vitamin B12 Active SOCIAL HISTORY Sex Assigned At : Social History Observation Description Sex Assigned At Unknown PROBLEMS Problem Type ICD Code Onset Dates Problem Status W/U Status Risk SNOMED Code Notes Problem Colon cancer screening (Z12.11) Active confirmed 545625642 Problem Diverticulosis of large intestine without perforation or abscess without bleeding (K57.30) Active confirmed Diverticul ar disease of colon (257534311) Problem Preprocedural examination (Z01.818) Active confirmed [id number] PLAN OF TREATMENT Future Test Test Name Order Date COLONOSCOPY 07/25/2012 COLONOSCOPY 03/08/2023 Insurance Providers Payer Name Payer Address Payer Phone Subscriber Number Group Number Insured Name Patient Relationship to Insured Coverage Start Date Coverage End Date CIGNA [address] [place] [id number] [phone] [id number] YONIS CAROLE Self - patient is the insured MEDICAL (GENERAL) HISTORY Medical History History ICD Code Hypertension Denies [place],DM,CVA,Lung disease,renal dise ase Hyperlipidemia Grave's disease- in remission currently -Rx'd in past at [facility] Negative screening colonoscopy in 08/2012 Surgical History Surgery Date(Month/Year) Tonsillectomy Hysterectomy
== END 2024-07-01 13:48 | disposition home or self-care (01) ==
PROVIDERS: PCP Internal Medicine; Visit Provider Internal Medicine
DX: Z76.89 Persons encountering health services in other specified circumstances (principal); I10 Essential (primary) hypertension; E78.00 Pure hypercholesterolemia, unspecified; E07.9 Disorder of thyroid, unspecified

== ENCOUNTER → 2024-07-01 13:06 | Outpatient (BNVA) | payer OTHER, SELFPAY | PROVIDERS: PCP Internal Medicine; Visit Provider Internal Medicine | DX: Z76.89 Persons encountering health services in other specified circumstances (principal); I10 Essential (primary) hypertension; E78.00 Pure hypercholesterolemia, unspecified; E07.9 Disorder of thyroid, unspecified; Z79.899 Other long term (current) drug therapy | CPT/HCPCS: 96127 ==

== ENCOUNTER 2024-07-07 08:47 | Outpatient (REF) | payer OTHER, SELFPAY ==
--- OUTSIDE RECORDS SUMMARY | 2024-07-07 09:09 | XMS_ITS ---
Author Organization [facility] Address [address] [place] [address] Care Team Providers Care Telephone Lineworker Name Role Phone Rodrigo Mcclure MD Primary Care Provider Leslie Euceda Unavailable [phone] ALLERGIES Allergen (clinical drug ingredient) Drug/Non Drug [...] Problem Colon cancer screening (Z12.11) Active confirmed 012570044 Problem Preprocedural examination (Z01.818) Active confirmed 788012462465028 VITAL SIGNS BMI 21.14 kg/m2 03/08/2023 Blood pressure systolic 000 mm Hg 03/08/20 23 Blood pressure diastolic 00 mm Hg 023 Height 65.25 in 03/08/2023 Temperature 96.6 degrees Fahrenheit 03/08/20 23 Weight 128 lbs 03/08/2023 Encounters Encounter Location Date Provider Diagnosis [facility] [address] [place] [address] 03/08/2023 Leslie Pastrana Colon cancer screeni ng [...]
--- OUTSIDE RECORDS SUMMARY | 2024-07-07 09:09 | XMS_ITS | Patient Health Record ---
Author Organization [facility] Address [address] [place] [address] Care Team Providers Care Operations And Maintenance Technician Name Role Phone Rodrigo Mcclure MD Primary Care Provider Leslie Euceda Unavailable [phone] ALLERGIES Allergen (clinical drug ingredient) Drug/Non Drug [...] Problem Colon cancer screening (Z12.11) Active confirmed 767076104 Problem Diverticulosis of large intestine without perforation or abscess without bleeding (K57.30) Active confirmed Diverticul ar disease of colon (248119732) Problem Preprocedural examination (Z01.818) Active confirmed [id number] PLAN OF TREATMENT Future Test Test Name Order Date COLONOSCOPY 07/25/2012 COLONOSCOPY 03/08/2023 Insurance Providers Payer Name Payer Address Payer Phone Subscriber Number Group Number Insured Name Patient Relationship to Insured Coverage Start Date Coverage End Date CIGNA [address] [place] [id number] YONIS CAROLE Self - patient is the insured MEDICAL (GENERAL) HISTORY Medical History History ICD Code Hypertension Denies [place],DM,CVA,Lung disease,renal dise ase Hyperlipidemia Grave's disease- in remission currently -Rx'd in past at [facility] Negative screening colonoscopy in 08/2012 Surgical History Surgery Date(Month/Year) Tonsillectomy Hysterectomy
[2024-07-07 11:00] LABS: MANUAL DIFF FLAG NO
[2024-07-07 11:23] LABS: Basophils Percent Auto 0.7 % (0-2); Eosinophils Absolute Auto 0.4 X10*3/uL (0.0-0.4); Eosinophils Percent Auto 6.4 % (0-4); Hematocrit 38.4 % (37.0-47.0); Hemoglobin 12.6 g/dl (12.0-16.0); Imm Gran Abs Auto 0.01 X10*3/uL (0.00-0.03); Imm Gran Pct Auto 0.2 % (0.0-0.4); Lymphocytes Percent Auto 35.6 % (20-40); Mean Corpuscular HGB Conc 32.8 g/dl (31.0-35.0); Mean Corpuscular Hemoglobin 30.4 pg (27.0-33.0); Mean Corpuscular Volume 92.8 fL (80.0-98.0); Mean Platelet Volume 11.2 fL (9.4-12.3); Monocytes Absolute Auto 0.4 X10*3/uL (0.1-1.2); Neutrophils Absolute Auto 2.7 x10*3/uL (2.0-8.3); Neutrophils Percent Auto 49.1 % (45-73); Platelet Count 236 X10*3/uL (160-400); Red Blood Count 4.14 X10*6/uL (4.20-5.50); Red Cell Distribution Width 13.1 % (11.0-16.0); White Blood Count 5.5 X10*3/uL (4.8-10.8)
[2024-07-07 11:47] LABS: Cortisol Random 15.1 ug/dL
[2024-07-07 11:51] LABS: Alanine Aminotransferase 20 U/L (0-31); Albumin Level 4.1 g/dL (3.5-5.0); Alkaline Phosphatase 72 U/L (39-117); Anion Gap 9 (12-20); Aspartate Amino Transferase 28 U/L (5-31); Bilirubin Total 0.4 mg/dL (0.0-1.0); Blood Urea Nitrogen 27 mg/dL (9-16); Calcium 9.4 mg/dL (8.4-10.2); Carbon Dioxide 29 mmol/L (22-29); Chloride 109 mmol/L (96-108); Cholesterol 149 mg/dL (<200); Estimated Glomerular Filt Rate > 60; Glucose Random 88 mg/dL (60-115); HDL Cholesterol 52 mg/dL (>40); LDL Cholesterol Calculated 84 mg/dL (<100); Potassium 3.5 mmol/L (3.3-5.1); Sodium 143 mmol/L (135-145); TSH reflex Free T4 2.26 uIU/mL (0.32-4.0); Total Protein 6.4 g/dL (6.5-8.0); Triglycerides 69 mg/dL (<150)
== END 2024-07-07 08:48 | disposition home or self-care (01) ==
LOC: HO.WFDLDS 08:47
PROVIDERS: Visit Provider Internal Medicine
DX: I10 Essential (primary) hypertension (principal); E78.00 Pure hypercholesterolemia, unspecified; E07.9 Disorder of thyroid, unspecified; R53.83 Other fatigue
CPT/HCPCS: 36415; 80053; 80061; 82533; 84443; 85025

== ENCOUNTER → 2024-07-08 08:49 | Outpatient (BNVA) | payer OTHER, SELFPAY | PROVIDERS: PCP Internal Medicine; Visit Provider Internal Medicine ==

== ENCOUNTER 2025-01-05 11:20 | Outpatient (AMB) | payer OTHER, SELFPAY ==
--- NOTE | 2025-01-05 11:22 | MHC.PC.OV ---
Vital Signs 01/05/25 11:23 Height 5 ft 5 in Weight 138 lb 4 oz BMI 23.0 BP 128/68 Blood Pressure Location Rt brachial Position Sitting Respiration 12 Pulse 49 L Pulse Source Pulse Oximeter Temp 98.1 F Temp Source Oral Pulse Oximetry (%) 99 Oxygen Delivery Method Room Air Intake Visit Reasons: CPE Intake Note: Physical Assembly Line Driver Required: No Allergies penicillin G (Penicillin G) Allergy (Intermediate, Verified 01/05/25 11:22) Unknown-childhood allergy erythromycin base (Erythromycin Base) Allergy (Mild, Verified 01/05/25 11:22) HIVES Sulfa (Sulfonamide Antibiotics) (Sulfa (Sulfonamides)) Allergy (Mild, Verified 01/05/25 11:22) HIVES Medication List - Last Reconciled 01/06/25 by Alyssa Marinelli MD atenolol 25 mg PO DAILY atorvastatin 50 mg PO DAILY betamethasone dipropionate 0.05% 1 appl topical BID PRN lisinopril 5 mg PO DAILY methimazole 5 mg PO DAILY Tobacco use date assessed: 01/05/25 Dental Screening Dental Screen Date: 07/01/24 HPI HPI Comments History of Present Illness Details 64 year old female with a past medical history of hypertension, hyperlipidemia, Graves presenting for physical exam CV: On atenolol 50, lisinopril 5. Took off hctz-feeling better. HR 49 today. The atenolol is new. No chest pain or exertional dyspnea Hyperthyroid: On methimazole MWF. Last TSH was normal range. colonoscopy 05/2023 mammo 01/2024-ordered s/p hysterectomy. Not following with network systems analyst ROS CONSTITUTIONAL: Denies weight loss, fever and chills. HEENT: Sinus congestion, rhinitis, ear fullness RESPIRATORY: +cough for the past 3 week CV: Denies palpitations and CP GI: Denies abdominal pain, nausea, vomiting and diarrhea. : Denies dysuria and urinary frequency. MSK: Denies new myalgia and joint pain. SKIN: Denies rash and pruritus. NEUROLOGICAL: Denies headache PSYCHIATRIC: Denies recent changes in mood. PHYSICAL EXAM: GENERAL: Alert and oriented x 3. NAD EYES: EOMI. Anicteric. HENT: Moist mucous membranes. boggy nasal mucosa LUNGS: Clear to auscultation bilaterally. CARDIOVASCULAR: Regular rate and rhythm. No murmur. No JVD. ABDOMEN: Soft, non-tender +bs EXTREMITIES: No edema. Non-tender. SKIN: No rashes or lesions. Warm. NEUROLOGIC: No focal neurological deficits. CN II-XII grossly intact PSYCHIATRIC: Cooperative. Appropriate mood and affect COUNTS INCLUDE 234 BEDS AT THE [facility] Medical History Thyroid disease Elevated cholesterol HTN (hypertension) Surgical History Hx of dilation and curettage Hx of hysterectomy Hx of tonsillectomy H/O colonoscopy Family History Mother Breast cancer Hypertension High cholesterol Father Hypertension High cholesterol Diabetes Cardiovascular disease Son Diabetes Social History Household Members: Spouse Housing: House Are you a primary post acute care registered nurse to a significant other at home: No Do you presently have visiting nurse or other home services: No 75 years or older and lives alone: No Alcohol intake: current Alcohol intake frequency: a few times a week Patient Tobacco Use Status: Former Tobacco user Tobacco use type: Cigarette e-Cigarette/Vaping Use: Never Used Second Hand Smoke Exposure: No Current occupational status: employed 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 Cognitive needs: No Hearing needs: No Vision needs: No Questionnaire Thrive Questionnaire Date Thrive assessed: 07/01/24 I am a: Patient What is your living situation today?: I have a steady place to live Within the past 12 months, did the food you bought not last and you didn't have the money to get more?: Never true Within the past 12 months, did you worry whether your food would run out before you got money to buy more?: Never true Do you have trouble paying for medicines?: No Do you have trouble getting transportation to medical appointments?: No Do you have trouble paying your heating and electricity bill?: No Do you have trouble taking care of your child, family member or friend?: No Do you have trouble with day-to-day activities such as bathing, preparing meals, shopping, managing finances, etc.?: No Are you currently unemployed and looking for a job?: No Are you interested in more education?: No Please select the resources that you would like help with: None Currently or been in a relationship where the following occur: No concerns reported THRIVE Score: 0 SIGRID-7 AMB Questionnaire SIGRID-7 Date SIGRID - 7 assessed: 07/01/24 Source: Developed by Drs. Corey Cadena, Violeta Harrington, Alec Bourne and colleagues, with an educational theodore from [employer]. Physical exam (Primary Care) Vital Signs: Last Vital Signs Temp 98.1 F 01/05/25 11:23 Pulse 49 L 01/05/25 11:23 Resp 12 01/05/25 11:23 BP 128/68 01/05/25 11:23 Pulse Ox 99 01/05/25 11:23 Oxygen Delivery Method Room Air 01/05/25 11:23 BMI result Body Mass Index 23.0 Tobacco/Smoking Status: Tobacco use Status Tobacco use date assessed 01/05/25 01/05/25 11:26 Patient Tobacco Use Status Former Tobacco user 01/05/25 11:26 Tobacco use type Cigarette 01/05/25 11:26 e-Cigarette/Vaping Use Never Used 01/05/25 11:26 Thrive Assessment: Date of Thrive Assessment Date Thrive assessed 07/01/24 01/05/25 11:26 Currently or been in a relationship where the following occur: No concerns reported Coding Level of Care Code Est Pt Prev Care 40-64y(56705) Diagnoses Primary hypertension I10 Hypertension type: primary hypertension Elevated cholesterol E78.00 Thyroid disease E07.9 Chronic fatigue R53.82 Fatigue type: chronic, unspecified Assessment & Plan Assessment & Plan (1) HTN (hypertension): Code(s): I10 - Essential (primary) hypertension Category: Medical Qualifiers: Hypertension type: primary hypertension Qualified Code(s): I10 - Essential (primary) hypertension (2) Elevated cholesterol: Code(s): E78.00 - Pure hypercholesterolemia, unspecified Category: Medical (3) Thyroid disease: Comment: Graves-taking methimazole Code(s): E07.9 - Disorder of thyroid, unspecified Category: Medical (4) Fatigue: Code(s): R53.83 - Other fatigue Category: Medical Qualifiers: Fatigue type: chronic, unspecified Qualified Code(s): R53.82 - Chronic fatigue, unspecified Plan 64 year old for CPE Interval history reviewed Preventive measures for age discussed and UTD. Mammo ordered HTN-well controlled. HR is too low (asymptomatic). Decrease atenolol to 25mg daily Hyperthyroid-monitor TSH Orders: Orders Complete Blood Count Auto Diff 01/05/25 E07.9 - Disorder of thyroid, unspecified, E78.00 - Pure hypercholesterolemia, unspecified, I10 - Essential (primary) hypertension, Z13.0 - Encounter for screening for diseases of the blood and blood-forming organs and certain disorders involving the immune mechanism Comprehensive Met. Panel 01/05/25 E07.9 - Disorder of thyroid, unspecified, E78.00 - Pure hypercholesterolemia, unspecified, I10 - Essential (primary) hypertension, Z13.0 - Encounter for screening for diseases of the blood and blood-forming organs and certain disorders involving the immune mechanism XR DEXA axial skeleton 01/05/25 E28.39 - Other primary ovarian failure Lipid Panel with Reflex 01/05/25 E07.9 - Disorder of thyroid, unspecified, E78.00 - Pure hypercholesterolemia, unspecified, I10 - Essential (primary) hypertension, Z13.0 - Encounter for screening for diseases of the blood and blood-forming organs and certain disorders involving the immune mechanism Thyroid Peroxidase Antibodies 01/05/25 E07.9 - Disorder of thyroid, unspecified, E78.00 - Pure hypercholesterolemia, unspecified, I10 - Essential (primary) hypertension, Z13.0 - Encounter for screening for diseases of the blood and blood-forming organs and certain disorders involving the immune mechanism TSH reflex Free T4 01/05/25 E07.9 - Disorder of thyroid, unspecified, E78.00 - Pure hypercholesterolemia, unspecified, I10 - Essential (primary) hypertension, Z13.0 - Encounter for screening for diseases of the blood and blood-forming organs and certain disorders involving the immune mechanism MM tomosynthesis screening BI 01/05/25 Z12.31 - Encounter for screening mammogram for malignant neoplasm of breast Medications: New betamethasone dipropionate 0.05% 1 appl topical BID PRN 45 grams 3RF skin irritation betamethasone dipropionate 0.05% 1 appl topical BID PRN 45 grams 3RF skin irritation atenolol 25 mg PO DAILY 90 tabs 3RF
[2025-01-05 11:23] VITALS: BP 128/68; PULSE 49; RESP 12; TEMP 36.7; O2SAT 99; BMI 23.0
--- OUTSIDE RECORDS SUMMARY | 2025-01-05 12:29 | XMS_ITS | Patient Health Record ---
Author Organization [facility] Address [address] [place] [address] Care Team Providers Care Machine Straw Hat Presser Name Role Phone Rodrigo Mcclure MD Primary Care Provider Leslie Euceda Unavailable [phone] Allergies Allergen (clinical drug ingredient) Drug/Non Drug Allergy documented on EMR Reaction Allergy Type Onset Date Status Sulfa Unknown Drug Allergy Active Penicillin Unknown Drug Allergy Active erythromycin Erythromycin Unknown Drug Allergy A ctive Reason For Referral No Information Medications Medication SIG (Take, Route, Frequency, Duration) Notes [...] Active Vitamin D Active Vitamin B12 Active Problems Problem Type SNOMED Code ICD Code Onset Dates Problem Status W/U Status Risk Notes Problem [id number] Colon cancer screening (Z12.11) Active confirmed Problem Diverticular disease of colon (176417015) Diverticulosis of large intestine without perforation or abscess without bleeding (K57.30) Active confirmed Problem 692404524660099 Preprocedural examination (Z01.818) Active confirmed Plan Of Treatment Future Test Test Name Order Date COLONOSCOPY 07/25/2012 COLONOSCOPY 03/08/2023 Insurance Providers Payer Name Payer Address Payer Phone Subscriber Number Group Number Insured Name Patient Relationship to Insured Coverage Start Date Coverage End Date CIGNA [address] [place], [place] [id number] [phone] [id number] CAROLE SOMERS Self - patient is the insured Medical (General) History Medical History History ICD Code Hypertension Denies [place],DM,CVA,Lung disease,renal dise ase Hyperlipidemia Grave's disease- in remission currently -Rx'd in past at [facility] Negative screening colonoscopy in 08/2012 Surgical History Surgery Date(Month/Year) Tonsillectomy Hysterectomy
--- OUTSIDE RECORDS SUMMARY | 2025-01-05 12:29 | XMS_ITS | Clinical Summary ---
Author Organization [facility] Address [address] [place] [address] Care Team Providers Care Baton Twirler Name Role Phone Pcp, No Primary Care Provider Unavailabl e Allergies Active Allergy Reactions Criticality Noted Date Comments Penicillins Unknown 12/28/2020 Sulfa (Sulfonamide Antibiotics) Unknown 11/2020 Medications atenoloL (TENORMIN) 50 mg tablet 1 Active atorvastatin (LIPITOR) 10 mg tablet atorvastatin 10 mg tablet Active lisinopriL (PRINIVIL,ZESTR IL) 5 mg tablet 1 Active triamterene-hyd rochlorothiazid (DYAZIDE) 37.5-25 mg capsule triamterene 37.5 mg-hydrochloroth iazide 25 mg capsule Active diphenhydrAMINE (BenadryL) 25 mg capsule Take by mouth every 6 (six) hours if needed for itching. Active cetirizine (ZyrTEC) 10 mg capsule Take by mouth. Activ e predniSONE (DELTASONE) 20 mg tabletIndicatio ns:Rash Take 3 tabs once daily for 3 days, 2 tabs for 3 days, 1 tab for 3 days, 1/2 tab for 2 days. 19 tablet 1 Active Social History Tobacco Use Types Packs/Day Years Used Date Smoking Tobacco: Former Cigarettes Q uit: 12/28/1990 Comments Unknown Sex and Gender Information Value Date Recorded Sex Assigned at Not on file Legal Sex Female 12:06 PM EDT Gender Identity Not on file Sexual Orientation Not on file Last Filed Vital Signs Vital Sign Reading Time Taken Comments Blood Pressure 146/80 01/07/2021 3:55 PM EDT Pulse 56 01/07/2021 3:55 PM EDT Temperature 36.8 C (98.3 F) 01/07/2021 3:55 PM EDT Respiratory Rate - - Oxygen Saturation 97% 01/07/2021 3:55 PM EDT Inhaled Oxygen Concentration - - Weight 64.4 kg (141 lb 15.6 oz) 01/07/2021 3:55 PM EDT Height 165.1 cm (5' 5 ) 01/07/2021 3:55 PM EDT Body Mass Index 23.63 01/07/2021 3:55 PM EDT Plan of Treatment Health Maintenance Due Date Last Done Comments CT Colonography 1961 Colonoscopy 1961 Colorectal Cancer Screening 1961 FIT-DNA 1961 FIT 1961 FOBT 1961 Mammogram 1961 Sigmoidoscopy 1961 Annual Physical Exam 1979 Tdap and Td Vaccines Adult 1980 Pap Smear 1982 Cervical Cancer Screening 1991 HPV/Cotest 1991 Pneumococcal Vaccine: 50+ Ye ars (1 of 1 - PCV) 2011 Zoster Vaccines (1 of 2) 2011 COVID-19 Vaccine (1 - 2023-2 5 season) 2024 Influenza Vaccine (#1) 2025 RSV 60+ (1 - 1-dose 75+ series) 2036 HIB Vaccines Aged Out No longer eligi ble based on patient's age to complete this topic HPV Vaccines (No Doses Required) Completed Hepatitis A Vaccines Aged Out No long er eligible based on patient's age to complete this topic IPV Vaccines Aged Out No longer eligi ble based on patient's age to complete this topic Meningococcal Vaccine Aged Out No sheila evelyn eligible based on patient's age to complete this topic RSV <20 Months Aged Out No longer kris gible based on patient's age to complete this topic Insurance CIGNA Care Teams Baton Twirler Relationship Specialty Start Date End Date Pcp, No No PCP On File KAI Lopez [id number] PCP - General 12/28/20
== END 2025-01-05 11:54 | disposition home or self-care (01) ==
LOC: HO.HMCFM 11:20
PROVIDERS: PCP Internal Medicine; Visit Provider Internal Medicine
DX: Z00.00 Encounter for general adult medical examination without abnormal findings (principal); I10 Essential (primary) hypertension; E78.00 Pure hypercholesterolemia, unspecified; E07.9 Disorder of thyroid, unspecified; R53.82 Chronic fatigue, unspecified

== ENCOUNTER → 2025-02-24 12:45 | Outpatient (BNV) | payer OTHER, SELFPAY | PROVIDERS: PCP Internal Medicine; Visit Provider Internal Medicine | DX: Z12.31 Encounter for screening mammogram for malignant neoplasm of breast (principal) | CPT/HCPCS: 77063; 77067 ==

== ENCOUNTER 2025-02-24 12:52 | Outpatient (REF) | payer OTHER, SELFPAY ==
--- NOTE | ~2025-02-24 | MM_ITS ---
EXAMINATION: MM SCREENING DIGITAL BREAST TOMOSYNTHESIS, BILATERAL CLINICAL INFORMATION: Screening. Asymptomatic. COMPARISON: Mammography: Comparison is made with available priors TECHNIQUE: Digital breast mammography with tomosynthesis is performed in both the craniocaudal and mediolateral oblique views along with computer-aided detection (CAD). FINDINGS: There are scattered areas of fibroglandular density (ACR BI-RADS breast composition Category b). There are no significant masses, abnormal calcifications, or other abnormalities. MM/MM tomosynthesis screening BI IMPRESSION: No mammographic evidence of malignancy. ASSESSMENT: BI-RADS BI-RADS 1 - Negative RECOMMENDATION: Routine annual mammography screening. 1 year F/U This examination should not preclude the clinical evaluation of a suspicious palpable abnormality. This patient's information was entered into a reminder system with a target due date for their next mammogram. Electronically signed by: Clementina Kraus DO 02/24/2025 03:10 PM EDT
--- OUTSIDE RECORDS SUMMARY | 2025-02-24 14:10 | XMS_ITS | Clinical Summary ---
Author Organization [facility] Address [address] [place] [address] Care Team Providers Care Groundskeeper Supervisor Name Role Phone Pcp, No Primary Care [...] complete this topic Insurance [employer] Care Teams Groundskeeper Supervisor Relationship Specialty Start Date End Date Pcp, No No PCP On File KAI Lopez [id number] PCP - General 12/28/20
== END 2025-02-24 12:53 | disposition home or self-care (01) ==
LOC: HO.MAMMO 12:52
PROVIDERS: PCP Internal Medicine; Visit Provider Internal Medicine
DX: Z12.31 Encounter for screening mammogram for malignant neoplasm of breast (principal)
CPT/HCPCS: 77063; 77067

== ENCOUNTER → 2025-02-25 09:45 | Outpatient (BNV) | payer OTHER, SELFPAY | PROVIDERS: PCP Internal Medicine; Visit Provider Radiology Body Imaging | DX: E28.39 Other primary ovarian failure (principal) | CPT/HCPCS: 77080 ==

== ENCOUNTER 2025-02-25 09:51 | Outpatient (REF) | payer OTHER, SELFPAY ==
--- NOTE | ~2025-02-25 | MM_ITS ---
STUDY: DUAL ENERGY X-RAY ABSORPTIOMETRY / DXA REASON FOR EXAM: Female, 64 years old E28.39 - Other primary ovarian failure TECHNIQUE: Bone Mineral Density (BMD) measurements of the lumbar spine and left hip were obtained using [employer] COMPARISON: None FINDINGS: L1-L4 BMD: 1.200 g/cm2 L1-L4 T score: 0.2. This corresponds to Normal bone density. Left femoral neck BMD: 1.015 g/cm2 Left femoral neck T score: -0.2. This corresponds to Normal bone density. Left total hip BMD: 1.106 g/cm2 Left total hip T score: 0.8. This corresponds to Normal bone density. MM/XR DEXA axial skeleton IMPRESSION: Normal bone density Reference Information: The T-score is the number of standard deviations above or below the standard which is normal for young adults at their peak bone mineral density. The World Health Organization (WHO) interprets the T-scores as follows: At or above -1 SD Normal bone density Between -1 and -2.5 SD Osteopenia At or below -2.5 SD Osteoporosis Electronically signed by: Meggan Strickland MD 02/26/2025 11:03 AM EDT
--- OUTSIDE RECORDS SUMMARY | 2025-02-25 11:01 | XMS_ITS | Clinical Summary ---
Author Organization [facility] Address [address] [place] [address] Care Team Providers Care Body Line Finisher Name Role Phone Pcp, No Primary Care [...] complete this topic Insurance [employer] Care Teams Body Line Finisher Relationship Specialty Start Date End Date Pcp, No No PCP On File KAI Lopez [id number] PCP - General 12/28/20
--- OUTSIDE RECORDS SUMMARY | 2025-02-25 11:01 | XMS_ITS | Patient Health Record ---
Author Organization [facility] Address [address] [place] [address] Care Team Providers Care Tape Maker Name Role Phone Ren (RETIRED) Rodrigo CASPER Primary Care Provide r Unavailable Leslie Pastrana Unavailable [phone] Allergies Allergen (clinical drug ingredient) Drug/Non Drug [...] Problem Status W/U Status Risk Notes Problem [id number] Colon cancer screening (Z12.11) Active confirmed Problem Diverticulosis o f large intestine without perforation or abscess without bleeding (K57.30) Active confirmed Problem [id number] Preprocedural examination (Z01.818) Active confirmed Plan Of Treatment Future Test Test Name Order Date COLONOSCOPY 07/25/2012 COLONOSCOPY 03/08/2023 Insurance Providers Payer Name Payer Address Payer Phone Subscriber Number Group Number Insured Name Patient Relationship to Insured Coverage Start Date Coverage End Date [employer] [address] [place], [place] [address] [id number] CAROLE SOMERS Self - patient is the insured Medical (General) History Medical History History ICD Code Hypertension Denies [place],DM,CVA,Lung disease,renal dise ase Hyperlipidemia Grave's disease- in remission currently -Rx'd in past at [facility] Negative screening colonoscopy in 08/2012 Surgical History Surgery Date(Month/Year) Tonsillectomy Hysterectomy
== END 2025-02-25 09:52 | disposition home or self-care (01) ==
LOC: HO.MAMMO 09:51
PROVIDERS: PCP Internal Medicine; Visit Provider Internal Medicine
DX: Z13.820 Encounter for screening for osteoporosis (principal); E28.39 Other primary ovarian failure
CPT/HCPCS: 77080

== ENCOUNTER 2025-02-27 08:16 | Outpatient (REF) | payer OTHER, SELFPAY ==
--- OUTSIDE RECORDS SUMMARY | 2025-02-27 08:35 | XMS_ITS | Clinical Summary ---
Author Organization [facility] Address [address] [place] [address] Care Team Providers Care Reservoir Engineering Manager Name Role Phone Pcp, No Primary Care [...] COVID-19 Vaccine (1 - 2023-2 5 season) 2025 Influenza Vaccine (#1) 2025 RSV 60+ (1 [...] complete this topic Insurance [employer] Care Teams Reservoir Engineering Manager Relationship Specialty Start Date End Date Pcp, No No PCP On File KAI [id number] PCP - General 12/28/20
--- OUTSIDE RECORDS SUMMARY | 2025-02-27 08:35 | XMS_ITS | Patient Health Record ---
Author Organization [facility] Address [address] [place] [address] Care Team Providers Care Leather Scrubber Name Role Phone Ren (RETIRED) Rodrigo CASPER Primary Care Provide r Unavailable Leslie Pastrana Unavailable [phone] Allergies Allergen (clinical drug ingredient) Drug/Non Drug [...] Problem Status W/U Status Risk Notes Problem [id number] Colon cancer screening (Z12.11) Active confirmed Problem Diverticular disease of colon (988145965) Diverticulosis of large intestine without perforation or abscess without bleeding (K57.30) Active confirmed Problem [id number] Preprocedural examination (Z01.818) Active confirmed Plan Of Treatment Future Test Test Name Order Date COLONOSCOPY 07/25/2012 COLONOSCOPY 03/08/2023 Insurance Providers Payer Name Payer Address Payer Phone Subscriber Number Group Number Insured Name Patient Relationship to Insured Coverage Start Date Coverage End Date [employer] [address] [place], [place] [address] [id number] CAROLE SOMERS Self - patient is the insured Medical (General) History Medical History History ICD Code Hypertension Denies [place],DM,CVA,Lung disease,renal dise ase Hyperlipidemia Grave's disease- in remission currently -Rx'd in past at [facility] Negative screening colonoscopy in 08/2012 Surgical History Surgery Date(Month/Year) Tonsillectomy Hysterectomy
[2025-02-27 11:12] LABS: MANUAL DIFF FLAG NO
[2025-02-27 11:24] LABS: Hematocrit 40.7 % (37.0-47.0); Hemoglobin 13.2 g/dl (12.0-16.0); Imm Gran Abs Auto 0.02 X10*3/uL (0.00-0.03); Imm Gran Pct Auto 0.4 % (0.0-0.4); Lymphocytes Absolute Auto 2.0 X10*3/uL (1.2-4.9); Mean Corpuscular HGB Conc 32.4 g/dl (31.0-35.0); Mean Corpuscular Hemoglobin 30.1 pg (27.0-33.0); Mean Corpuscular Volume 92.9 fL (80.0-98.0); NRBC Abs Auto 0.000 X10*3/uL (0.0-0.012); NRBC Pct Auto 0.0 /100WBC (0.0-0.2); Platelet Count 209 X10*3/uL (160-400); Red Blood Count 4.38 X10*6/uL (4.20-5.50); White Blood Count 5.6 X10*3/uL (4.8-10.8)
[2025-02-27 11:49] LABS: Alanine Aminotransferase 20 U/L (0-31); Albumin Level 4.5 g/dL (3.5-5.0); Alkaline Phosphatase 79 U/L (39-117); Anion Gap 11 (12-20); Aspartate Amino Transferase 30 U/L (5-31); Blood Urea Nitrogen 22 mg/dL (9-16); Calcium 9.4 mg/dL (8.4-10.2); Carbon Dioxide 28 mmol/L (22-29); Chloride 109 mmol/L (96-108); Cholesterol 197 mg/dL (<200); Estimated Glomerular Filt Rate > 60; HDL Cholesterol 66 mg/dL (>40); Potassium 3.7 mmol/L (3.3-5.1); Sodium 144 mmol/L (135-145); Total Protein 6.7 g/dL (6.5-8.0); Triglycerides 90 mg/dL (<150)
[2025-02-27 13:00] LABS: Reflex LDLD? No
== END 2025-02-27 08:17 | disposition home or self-care (01) ==
LOC: HO.WFDLDS 08:16
PROVIDERS: Visit Provider Internal Medicine
DX: Z13.0 Encounter for screening for diseases of the blood and blood-forming organs and certain disorders involving the immune mechanism (principal); I10 Essential (primary) hypertension; E78.00 Pure hypercholesterolemia, unspecified; E07.9 Disorder of thyroid, unspecified
CPT/HCPCS: 36415; 80053; 80061; 84443; 85025; 86376